=== PATIENT | female | born 1950 | race Caucasian/White ===

== ENCOUNTER 2023-03-01 13:53 | Outpatient (OUT) | payer MEDICARE, OTHER, SELFPAY ==
[2023-03-01 14:27] LABS: Basophils Percent Auto 0.3 % (0.2-2.0); Eosinophils Absolute Auto 0.2 10^3/uL (0.0-0.7); Eosinophils Percent Auto 3.2 % (0.9-7.0); Hematocrit 36.6 % (36.0-48.0); Immature Granulocytes Abs Auto 0.02 10^3/uL (0.00-0.03); Immature Granulocytes Pct Auto 0.3 % (0.0-0.5); Mean Corpuscular HGB Conc 30.1 g/dL (29.9-35.2); Mean Corpuscular Hemoglobin 28.6 pg (26.7-34.0); Mean Corpuscular Volume 95.1 fL (81.0-99.0); Mean Platelet Volume 11.6 fL (9.5-13.5); Monocytes Absolute Auto 0.7 10^3/uL (0.3-0.8); Monocytes Percent Auto 9.6 % (1.7-12.0); Neutrophils Percent Auto 72.6 % (43.0-75.0); Platelet Count 166 10^3/uL (150-450); Red Blood Count 3.85 10^6/uL (4.20-5.40); Red Cell Distribution Width 13.9 % (11.0-15.0); White Blood Count 6.9 10^3/uL (4.0-11.0)
[2023-03-01 15:07] LABS: Albumin Level 3.3 g/dL (3.4-5.0); Anion Gap 13.8; BUN Creatinine Ratio 20.2; Calcium 9.2 mg/dL (8.5-10.1); Carbon Dioxide 25.1 mmol/L (21.0-32.0); Chloride 108 mmol/L (98-107); Estimated GFR (African America 24 (>=60); Estimated GFR (Non-African Ame 20 (>=60); Glucose 137 mg/dL (74-106); Magnesium 1.9 mg/dL (1.8-2.4); Phosphorus 3.9 mg/dL (2.6-4.7); Potassium 4.9 mmol/L (3.5-5.1); Sodium 142 mmol/L (136-145)
[2023-03-01 15:14] LABS: Percent Iron Saturation 29.2 %
[2023-03-02 14:10] LABS: PTH, Intact 153 pg/mL (15-65)
== END 2023-03-01 13:54 | disposition home or self-care (01) ==
LOC: LAB 13:54
PROVIDERS: PCP Internal Medicine; Visit Provider Internal Medicine
DX: I12.9 Hypertensive chronic kidney disease with stage 1 through stage 4 chronic kidney disease, or unspecified chronic kidney disease (principal); N18.4 Chronic kidney disease, stage 4 (severe); D63.1 Anemia in chronic kidney disease; N25.81 Secondary hyperparathyroidism of renal origin; E11.22 Type 2 diabetes mellitus with diabetic chronic kidney disease; E87.5 Hyperkalemia; P19.9 Metabolic acidemia in newborn, unspecified
CPT/HCPCS: 36415; 80069; 82306; 82728; 83540; 83550; 83735; 83970; 85025

== ENCOUNTER 2023-05-07 15:16 | Outpatient (OUT) | payer MEDICARE, OTHER, SELFPAY ==
--- NOTE | 2023-05-07 15:24 | XR_ITS ---
[address] [address] Patient Name: RICHMOND AYALA MRN: [id number] date: 1950 Sex: F Assigned Patient Location: [facility] Current Patient Location: Accession/Order Number: [id number] Exam Date: 05/07/2023 15:40 Report Date: 05/08/2023 06:35 At the request of: DARIAN RIVERA Procedure: XR lumbar spine min 4V EXAMINATION: XR lumbar spine min 4V HISTORY: Chronic right-sided low back pain, sciatica M54.50, G89.29 ; pain increasing in severity COMPARISON: No relevant comparison available. FINDINGS: BONES: Moderate degenerative facet arthropathy L3-4 through L5-S1. No fracture or significant spondylolisthesis. DISC SPACES: Moderate-marked narrowing L3-4, L5-S1. PARASPINOUS: Atherosclerotic disease. OTHER: Negative. XR/XR lumbar spine min 4V IMPRESSION: 1. Moderate-marked degenerative changes at L3-4 and L5-S1, greatest at L5-S1. 2. Multilevel moderate degenerative facet arthropathy. 3. Consider MRI for further evaluation. Electronically authenticated by: SHERI JADE Date: 05/08/2023 06:35
== END 2023-05-07 15:17 | disposition home or self-care (01) ==
PROVIDERS: PCP Internal Medicine; Visit Provider Physician Assistant
DX: M54.50 Low back pain, unspecified (principal); G89.29 Other chronic pain
CPT/HCPCS: 72110

== ENCOUNTER 2023-05-28 14:43 | Outpatient (OUT) | payer MEDICARE, OTHER, SELFPAY ==
[2023-05-28 15:14] LABS: Hematocrit 31.9 % (36.0-48.0); Hemoglobin 9.7 g/dL (12.0-16.0); Mean Corpuscular HGB Conc 30.4 g/dL (29.9-35.2); Mean Corpuscular Volume 95.2 fL (81.0-99.0); Platelet Count 274 10^3/uL (150-450); Red Blood Count 3.35 10^6/uL (4.20-5.40); Red Cell Distribution Width 14.5 % (11.0-15.0); White Blood Count 9.2 10^3/uL (4.0-11.0)
[2023-05-28 15:48] LABS: Anion Gap 12.7; BUN Creatinine Ratio 13.3; Calcium 10.6 mg/dL (8.5-10.1); Carbon Dioxide 28.4 mmol/L (21.0-32.0); Chloride 101 mmol/L (98-107); Estimated GFR (African America 11 (>=60); Estimated GFR (Non-African Ame 9 (>=60); Glucose 131 mg/dL (74-106); Magnesium 2.5 mg/dL (1.8-2.4); Phosphorus 4.9 mg/dL (2.6-4.7); Potassium 4.1 mmol/L (3.5-5.1); Sodium 138 mmol/L (136-145)
== END 2023-05-28 14:44 | disposition home or self-care (01) ==
LOC: LAB 14:45
PROVIDERS: PCP Internal Medicine; Visit Provider Internal Medicine
DX: I12.9 Hypertensive chronic kidney disease with stage 1 through stage 4 chronic kidney disease, or unspecified chronic kidney disease (principal); N18.4 Chronic kidney disease, stage 4 (severe); D63.1 Anemia in chronic kidney disease; N25.81 Secondary hyperparathyroidism of renal origin; E11.22 Type 2 diabetes mellitus with diabetic chronic kidney disease; E87.5 Hyperkalemia; E87.20 Acidosis, unspecified
CPT/HCPCS: 36415; 80069; 82570; 83735; 84156; 85027